=== PATIENT | female | born 1965 | race Caucasian/White ===

== ENCOUNTER 2020-08-24 01:00 | Emergency (ER) | payer OTHER ==
[~2020-08-24] VITALS: Ht 165.1 cm; Wt 76.0 kg
[2020-08-24 01:27] VITALS: BP 110/62
[2020-08-24] MEDS ORDERED: ACETAMINOPHEN 325MG TABLET PO ONE (01:30)
[2020-08-24] MEDS ORDERED: BACITRACIN ZINC OINT UDPKT TOP ONE (01:30)
[2020-08-24] MEDS ORDERED: TETANUS, DIPHTHERIA, PERTUSSIS VAC/PF 0.5ML (>7YR OLD) IM ONE (01:30)
[2020-08-24] MEDS ORDERED: LIDOCAINE HCL/PF 1% 10 MG/ML 5ML VIAL IJ ONE (01:30)
[2020-08-24 03:01] LABS: EOSINOPHILS % 0.4 % (0.0-5.0); HEMATOCRIT. 37.7 % (36.0-48.0); HEMOGLOBIN. 13.3 g/dL (12.0-16.0); LYMPHOCYTES % 21.9 % (20.0-50.0); MEAN CORPUSCULAR HEMOGLOBIN 32.5 pg (28.0-32.0); MEAN PLATELET VOLUME 7.8 fl (7.4-10.4); MONOCYTES % 5.2 % (2.0-8.0); NEUTROPHILS % 71.5 % (40.0-76.0); PLATELET 265 x1000/uL (130-400); RED CELL DISTRIBUTION WIDTH 13.3 % (11.6-14.6)
[2020-08-24 03:09] LABS: CHLORIDE 109 mEq/L (98-107)
[2020-08-24 03:18] LABS: INR 0.9; PARTIAL THROMBOPLASTIN TIME 27.8 sec (23.4-31.0)
[2020-08-24] MEDS ORDERED: ACET-2708 MT (03:24)
[2020-08-24] MEDS ORDERED: BO1 TP (03:24)
[2020-08-24] MEDS ORDERED: CEPH500C2 MT (03:25)
== END 2020-08-24 04:02 | disposition home or self-care (01) ==
LOC: ER 01:00
DX: S61.211A Laceration without foreign body of left index finger without damage to nail, initial encounter (principal); W26.0XXA Contact with knife, initial encounter; Y93.89 Activity, other specified; Y92.89 Other specified places as the place of occurrence of the external cause; I10 Essential (primary) hypertension; I25.2 Old myocardial infarction; Z79.01 Long term (current) use of anticoagulants; Z79.899 Other long term (current) drug therapy
CPT/HCPCS: 12002; 36415; 80048; 85025; 85610; 85730; 99283; J3490

== ENCOUNTER 2020-09-04 16:42 | Emergency (ER) | payer OTHER ==
[~2020-09-04] VITALS: Ht 162.6 cm; Wt 77.0 kg
[~2020-09-04 16:42] MED LIST: ACET-2708 MT; BO1 TP; CEPH500C2 MT
[2020-09-04 17:06] VITALS: BP 113/66
== END 2020-09-04 18:24 | disposition home or self-care (01) ==
LOC: ER 16:42
DX: Z48.00 Encounter for change or removal of nonsurgical wound dressing (principal); I25.2 Old myocardial infarction
CPT/HCPCS: 99281